=== PATIENT | female | born 1990 | race Caucasian/White ===

== ENCOUNTER 2023-08-10 07:39 | Emergency (ER) | payer OTHER, SELFPAY ==
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
[2023-08-10 07:48] VITALS: BP 145/104; PULSE 114; O2SAT 96
[2023-08-10 07:52] VITALS: BP 155/104; PULSE 97; RESP 18; TEMP 36.9; O2SAT 94
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
[2023-08-10] MEDS: LORazepam 1 MG TABLET PO (08:19)
[2023-08-10 08:20] VITALS: BMI 23.2
--- NOTE | 2023-08-10 10:46 | PC.NURSE ---
remains ambulatory around room
[2023-08-10 10:50] VITALS: BP 115/85; PULSE 93; RESP 18; O2SAT 97
== END 2023-08-10 10:50 | disposition still patient (30) ==
PROVIDERS: Emergency Provider Emergency Medicine; PCP Family Medicine
DX: S20.229A Contusion of unspecified back wall of thorax, initial encounter (principal); M54.50 Low back pain, unspecified; V43.52XA Car driver injured in collision with other type car in traffic accident, initial encounter; Y93.89 Activity, other specified; Y92.410 Unspecified street and highway as the place of occurrence of the external cause; Y99.9 Unspecified external cause status
CPT/HCPCS: 72040; 72100; 99283; 99284